=== PATIENT | female | born 1990 | race American Indian/Alaskan Native ===

== ENCOUNTER 2020-03-04 21:42 | Outpatient (CLI) | payer MEDICAID ==
[2020-03-04 22:02] VITALS: BP 114/54
[2020-03-04 22:28] LABS: Bilirubin,Urine NEG (Negative); Blood,Urine NEG (Negative); Color,Urine Yellow (Yellow); Protein,Urine <15 mg/dL mg/dL (Negative); Urobilinogen,Urine < 2.0 mg/dL (<2.0)
== END 2020-03-04 22:56 | disposition home or self-care (01) ==
LOC: TRG 21:42 → APU 21:43 → TRG 22:56
PROVIDERS: ATTEND Obstetrics & Gynecology
DX: O26.92 Pregnancy related conditions, unspecified, second trimester (principal); R10.9 Unspecified abdominal pain; Z3A.25 25 weeks gestation of pregnancy
CPT/HCPCS: 59025; 81001

== ENCOUNTER 2020-06-05 02:36 | Inpatient (IN) | payer MEDICAID ==
[2020-06-05] MEDS ORDERED: BUTORPHANOL 2 MG/1 ML INJ IV PRN (03:32)
[2020-06-05] MEDS ORDERED: ePHEDrine SULFATE 50 MG/1 ML INJ IV PRN ×2 (03:32→06:14)
[2020-06-05] MEDS ORDERED: MINERAL OIL 30 ML ORAL LIQD PO PRN (03:32)
[2020-06-05] MEDS ORDERED: AMPICILLIN/NS 2 GM/100 ML 2 GM/100 ML BAG IV ONE (03:32)
[2020-06-05] MEDS ORDERED: ACETAMINOPHEN 325 MG TAB PO PRN (03:32)
[2020-06-05] MEDS ORDERED: TERBUTALINE 1 MG/1 ML INJ SUB-Q PRN (03:32)
[2020-06-05] MEDS ORDERED: LIDOCAINE (2%) 20 MG/1 ML VIAL 20 ML MDV INFILTRATI ONE (03:32)
--- NOTE | 2020-06-05 03:43 | History and Physical Report ---
History of Present Illness Date of examination: 06/05/20 Date of admission: 06/05/2020 Chief complaint: I'm in labor History of present illness: Pt is a 30 year old who presents in active labor with regular contractions. Pt receives care at [facility], however records are not available for review. Will admit for labor and treat for GBS unknown. Past History Past Medical History: no pertinent history Past Surgical History: no surgical history - Obstetrical History Expected Date of Delivery: 06/14/20 Actual Gestation: 38 Week(s) 6 Day(s) : 3 Para: 2 Number of Living Children: 2 Medications and Allergies Allergies Allergy/AdvReac Type Severity Reaction Status Date / Time Fish Containing Products Allergy tongue Verified 05/31/16 16:06 itches red dye Allergy Hives Verified 05/31/16 16:06 Home Medications Medication Instructions Recorded Confirmed Last Taken Type Tablet 1 tab PO DAILY 07/07/15 06/05/20 1 Day Ago History ~06/19/16 Indomethacin [Indocin] 25 mg PO Q8H #9 capsule 02/16/16 06/05/20 Unknown Rx Nitrofurantoin Monohyd/M-Cryst 1 tab PO BID 02/16/16 06/05/20 2 Days Ago History [Nitrofurantoin [place]-Mcr 100 mg] ~02/14/16 oxyCODONE /ACETAMINOPHEN [Percocet 1 tab PO Q6HR PRN #30 tablet 02/16/16 06/05/20 Unknown Rx 5/325] HYDROcodone/APAP 5-325 [[place] 1 each PO Q6HR PRN #30 tablet 06/20/16 06/05/20 Unknown Rx 5/325] Ibuprofen [Motrin] 600 mg PO Q6H PRN #30 tablet 06/20/16 06/05/20 Unknown Rx Vit-Fe Fumar-FA [ 1 tab PO QDAY #30 tablet 06/20/16 06/05/20 Unknown Rx Vitamin] HYDROcodone/APAP 5-325 [[place] 1 each PO Q6HR PRN #15 tablet 12/13/19 06/05/20 Unknown Rx 5/325] Indomethacin [Indocin] 25 mg PO Q8H #9 capsule 12/13/19 06/05/20 Unknown Rx Ibuprofen [Motrin] 800 mg PO Q8HR PRN #30 tablet 06/06/20 Unknown Rx Active Meds: Active Medications Acetaminophen (Acetaminophen 325 Mg Tab) 650 mg PO Q4H PRN PRN Reason: Pain, Mild (1-3) Butorphanol Tartrate (Butorphanol 2 Mg/1 Ml Inj) 2 mg IV Q2H PRN PRN Reason: Pain , Severe (7-10) Ephedrine Sulfate (Ephedrine Sulfate 50 Mg/1 Ml Inj) 10 mg IV Q2M PRN PRN Reason: Hypotension Lactated Ringer's (Lactated Ringers) 1,000 mls @ 125 mls/hr IV DIRECT [facility] Oxytocin/Sodium Chloride (Pitocin/Ns 30 Unit/500ml) 30 units in 500 mls @ 40 mls/hr IV TITR [facility]; Protocol Ampicillin Sodium (Ampicillin/Ns 2 Gm/100 Ml) 2 gm in 100 mls @ 100 mls/hr IV ONCE ONE; Protocol Stop: 06/05/20 04:31 Ampicillin Sodium (Ampicillin/Ns 1 Gm/50 Ml) 1 gm in 50 mls @ 100 mls/hr IV Q4H [facility]; Protocol Lidocaine (Lidocaine (2%) 20 Mg/1 Ml Vial 20 Ml Mdv) 20 ml INFILTRATI ONCE ONE Stop: 06/05/20 03:33 Mineral Oil (Mineral Oil 30 Ml Oral Liqd) 30 ml PO QHS PRN PRN Reason: Constipation Terbutaline Sulfate (Terbutaline 1 Mg/1 Ml Inj) 0.25 mg SUB-Q ONCE PRN PRN Reason: Hyperstimulation/Hypertonicity Review of Systems All systems: negative Genitourinary: pelvic pain, contractions - Vital Signs Vital signs: Vital Signs Temp Pulse Resp BP 38.5 F L 85 18 120/74 06/05/20 03:07 06/05/20 03:07 06/05/20 03:07 06/05/20 03:07 Temp Pulse Resp BP Pulse Ox 38.5 F L 85 18 120/74 06/05/20 03:07 06/05/20 03:07 06/05/20 03:07 06/05/20 03:07 - Physical Exam Breasts: Cardiovascular: Regular rate, Normal S1, Normal S2 Lungs: Positive: Clear to auscultation, Normal air movement Abdomen: Positive: normal appearance, soft, normal bowel sounds. Negative: distention, tenderness Genitourinary (Female): Positive: normal external genitalia, normal perenium Vulva: both: normal Vagina: Positive: normal moisture. Negative: discharge Cervix: Negative: lesion, discharge Uterus: Positive: normal size, normal contour Adnexa: both: normal Anus/Rectum: Positive: normal perianal skin, heme negative. Negative: rectal mass, hemorrhoids Extremities: Deep Tendon Reflex Grade: Normal +2 - Obstetrical FHR: auscultation normal Cervical Dilatation: 3 Cervical Effacement Percentage: 90 station: 0 Uterine Contraction Pattern: Regular Uterine Tone Measurement Phase: Contraction Uterine Contraction Intensity: Moderate Results Result Diagrams: 06/05/20 23:55 All other labs normal. Assessment and Plan IUp at38.5 weeks in active labor with regular contractions and dilation. will admit for labor. Anticipate .
[2020-06-05] MEDS ORDERED: LACTATED RINGERS 1,000 ML IV SCH (03:45)
[2020-06-05] MEDS ORDERED: OXYTOCIN DRIP 30 UNITS/500 ML BAG IV SCH (04:00)
[2020-06-05 04:54] LABS: Hematocrit 35.2 % (30.3-42.9); Hemoglobin 12.1 gm/dl (10.1-14.3); Mean Corpuscular HGB Conc 35 % (30-34); Mean Corpuscular Volume 96 fl (79-97); Platelet Count 173 K/mm3 (140-440); Red Blood Count 3.67 M/mm3 (3.65-5.03); Red Cell Distribution Width 13.2 % (13.2-15.2)
[2020-06-05] MEDS ORDERED: NALOXONE 2 MG/2 ML INJ IV PRN ×2 (05:10→06:14)
[2020-06-05] MEDS ORDERED: diphenhydrAMINE 50 MG/ML VIAL IV PRN (05:10)
[2020-06-05] MEDS ORDERED: ONDANSETRON 4 MG/2 ML INJ IV PRN ×2 (05:10→11:00)
[2020-06-05] MEDS ORDERED: NalbUPHINE 10 MG/1 ML INJ IV PRN (05:10)
[2020-06-05] MEDS ORDERED: fentaNYL-BUPIV 2 MCG/ML-0.125% 200 MCG/100 ML BAG EPIDURAL SCH ×2 (06:00→07:00)
--- NOTE | 2020-06-05 06:14 | Anesthesia Consultation ---
Anesthesia Consult and Med Hx Date of service: 06/05/20 - Pulmonary Exam CTA: Yes - Cardiac Exam Cardiac Exam: RRR - Pre-Operative Health Status ASA Pre-Surgery Classification: ASA2 Proposed Anesthetic Plan: Epidural - Pulmonary Hx Smoking: Yes (quit a few weeks ago) Hx Asthma: No COPD: No Hx Pneumonia: No - Cardiovascular System Hx Hypertension: No - Central Nervous System Hx Seizures: No Hx Psychiatric Problems: No - Endocrine Hx Renal Disease: No Hx End Stage Renal Disease: No Hx Hypothyroidism: No Hx Hyperthyroidism: No - Hematic Hx Anemia: No Hx Sickle Cell Disease: No - Other Systems Hx Alcohol Use: No Hx Cancer: No
--- NOTE | 2020-06-05 06:36 | Progress Note ---
Labor Epidural - Labor Epidural Start Time: 06:24 Stop Time: 06:28 Performed by:: MIGDALIA DA SILVA Procedure: Patient is requesting epidural for labor pain. H&P, and labs reviewed. Procedure explained, questions answered, consent obtained. Patient in sitting position with blood pressure cuff and pulse ox on and working. Timeout performed immediately before start of procedure. Sterile chlorahexadine 0.5% prep/drape. 3 mL 1% lidocaine skin wheal at L[3]-L[4]. 18-gauge [employer] epidural needle advanced to [id number] with saline at [7] cm. Epidural dexmedetomidine [30] mcg administered. Epidural catheter advanced to [12] cm, negative aspiration for blood and csf, negative test dose 3 ml 1.5% lidocaine with epinephrine. Sterile steri-strips and tegaderm applied, followed by tape reinforcement. Patient tolerated procedure well.
[2020-06-05] MEDS ORDERED: AMPICILLIN/NS 1 GM/50 ML 1 GM/50 ML BAG IV SCH (07:35)
--- NOTE | 2020-06-05 08:08 | Event Note ---
Date: 06/05/20 Patient having regular contractions. AROM performed with clear fluid. Cervix 100/0. Continue current management.
--- NOTE | 2020-06-05 10:02 | Procedure Note ---
OB Delivery Note - Delivery Date of Delivery: 06/05/20 Surgeon: JOSHUA RICHTER Estimated blood loss: 200cc - Vaginal Delivery presentation: vertex Delivery position: OA Delivery induction: AROM Delivery monitor: external FHT, external uterine Route of delivery: Delivery placenta: spontaneous Delivery cord: 3 umbilical vessels Episiotomy: none Delivery laceration: none Anesthesia: epidural Delivery comments: Patient progressed to complete complete +2 and post to deliver a live-born male with Apgars of 8 and 9 weight 6lbs 4oz. After delivery of the head the shoulders delivered without difficulty. The infant was bulb suctioned and stimulated. The cord was clamped and cut x2 and the was placed on the patient's abdomen. The placenta delivered spontaneously intact with a three- vessel cord. No lacerations were noted. Estimated blood loss of 200 mL - A at 1 minute: 8 at 5 minutes: 9 Infant Gender: Male (weight 6lbs 4oz)
[2020-06-05] MEDS ORDERED: LANOLIN/ZINC/DIMETHICONE (LANSINOH) 7 GM TP PRN (10:30)
[2020-06-05] MEDS ORDERED: HYDROcodone/ACETAMINOPHEN 5-325 MG TAB PO PRN (10:30)
[2020-06-05] MEDS ORDERED: diphenhydrAMINE 25 MG CAP PO PRN (10:30)
[2020-06-05] MEDS ORDERED: WITCH HAZEL/ GLYCERIN PAD TP PRN (11:00)
[2020-06-05] MEDS ORDERED: PROMETHAZINE 25 MG RECT SUPP PR PRN (11:00)
[2020-06-05] MEDS ORDERED: PROMETHAZINE 25 MG TAB PO PRN (11:00)
[2020-06-05] MEDS: IBUPROFEN 600 MG TAB PO SCH ×2 (11:35→22:10)
[2020-06-05] MEDS ORDERED: MAGNESIUM HYDROXIDE (MOM) ORAL LIQD UDC PO PRN (22:00)
[2020-06-06 00:26] LABS: Hemoglobin 10.8 gm/dl (10.1-14.3)
[2020-06-06] MEDS: IBUPROFEN 600 MG TAB PO SCH ×4 (05:33→23:51)
--- NOTE | 2020-06-06 12:55 | Progress Note ---
Assessment and Plan A: PPD1 s/p at term. P:Routine care with discharge tomorrow morning. Subjective - Subjective Date of service: 06/06/20 Principal diagnosis: PPD1 s/p at term Interval history: Patient is feeling well without complaints. Pain is well controlled. Lochia is decreasing. Patient reports: appetite normal, voiding normally, pain well controlled, ambulating normally [place]: doing well Objective - Vital Signs Latest vital signs: Vital Signs Temp Pulse Resp BP BP Pulse Ox 06/06/20 08:11 98.7 F 67 18 115/65 100 06/06/20 05:33 20 06/06/20 00:45 98.3 F 81 19 94/44 100 06/05/20 22:10 20 06/05/20 20:55 98.1 F 76 20 100/54 100 06/05/20 16:25 98.4 F 76 18 115/68 06/05/20 15:45 98.2 F 18 06/05/20 12:55 98.4 F 82 18 108/65 100 Intake and Output 06/05/20 06/06/20 06/06/20 23:59 07:59 15:59 Intake Total 530 120 Output Total 400 Balance 130 120 Intake: Oral 530 120 Output: Urine 400 Void 400 Other: Total, Intake Amount 320 120 Total, Output Amount 400 # Voids Void 1 - Exam Uterus: Present: firm, fundal height below umbilicus
--- NOTE | 2020-06-06 13:00 | Discharge Summary ---
Providers - Providers Date of Admission: 06/05/20 03:32 Date of discharge: 06/07/20 Attending physician: COLE SORIA Primary care physician: COLE SORIA Hospitalization Reason for admission: active labor, IUP at term Delivery: Episiotomy: none Laceration: none Other procedures: none complications: none Discharge diagnosis: IUP at term delivered baby: male Hospital course: Patient was admitted in active labor. She went on to have a . course was uncomplicated. Condition at discharge: Good Disposition: DC-01 TO HOME OR SELFCARE Plan - Discharge Medications Prescriptions: Ibuprofen [Motrin] 800 mg PO Q8HR PRN #30 tablet PRN Reason: Pain, Moderate (4-6) - Provider Discharge Summary Activity: no sex for 6 weeks, no heavy lifting 4 weeks, no strenuous exercise Diet: routine Instructions: routine Additional instructions: [] Smoking cessation referral if applicable(refer to patient education folder for contact #) [] Refer to [facility] Booklet Call your doctor immediately for: * Fever > 100.5 * Heavy vaginal bleeding ( >1 pad per hour) * Severe persistent headache * Shortness of breath * Reddened, hot, painful area to leg or breast * Drainage or odor from incision. * Keep incision clean and dry at all times and follow doctor's instructions regarding bathing/showering - Follow up plan Follow up: NATACHA CESAR CNM [Advanced Practice Nurse] - 07/03/20 Forms: [facility] Discharge Summary
--- NOTE | 2020-06-06 17:15 | Post Anesthesia Evaluation ---
- Post Anesthesia Evaluation Patient Participated: Yes Airway Patent: Yes Stable Respiratory Function: Yes Nausea/Vomiting: No Temp > 96.8F: Yes Pain Manageable: Yes Adequeate Hydration: Yes Anesthesia Complications: No Block Receding Appropriately: Yes
[2020-06-07] MEDS: IBUPROFEN 600 MG TAB PO SCH (05:42)
[2020-06-07 13:51] VITALS: BP 113/67
== END 2020-06-07 13:30 | disposition home or self-care (01) | DRG 775 ==
LOC: TRG 02:36 → APU 02:42 → LD 03:32 → TRG 03:32 → OB 13:30
PROVIDERS: ADMIT Obstetrics & Gynecology; ATTEND Obstetrics & Gynecology
PROC: 10E0XZZ Delivery of Products of Conception, External Approach (ICD-10-PCS; principal; 2020-06-05)
PROC: 3E0R3BZ Introduction of Anesthetic Agent into Spinal Canal, Percutaneous Approach (ICD-10-PCS; 2020-06-05)
PROC: 00HU33Z Insertion of Infusion Device into Spinal Canal, Percutaneous Approach (ICD-10-PCS; 2020-06-05)
PROC: 10907ZC Drainage of Amniotic Fluid, Therapeutic from Products of Conception, Via Natural or Artificial Opening (ICD-10-PCS; 2020-06-05)
DX: O99.334 Smoking (tobacco) complicating childbirth (principal); O75.5 Delayed delivery after artificial rupture of membranes; Z20.822 Contact with and (suspected) exposure to COVID-19; Z3A.38 38 weeks gestation of pregnancy; Z37.0 Single live birth; Z91.013 Allergy to seafood; Z91.09 Other allergy status, other than to drugs and biological substances; Z79.899 Other long term (current) drug therapy
CPT/HCPCS: 36415; 85014; 85018; 85027; 86850; 86900; 86901; G0378; J0290; J0595; J2590; J7120; U0003